=== PATIENT | female | born 1965 | race African-American/Black ===

== ENCOUNTER 2016-05-22 15:20 | Emergency (ER) ==
--- NOTE | 2016-05-22 16:24 | PROVIDER DOCUMENTATION ---
HPI-General Adult - General Source: patient - History of Present Illness -Gen Adult Nature of Presenting Problems: Pt is a 50 yof that presents to er with cc of cough,sinus congestion,sorethroat, bialteral ear pain with intermittent fever x 2-3 days. Denies n,v,abd pain,sob. Location of Pain/Injury: reports: generalized Quality of Pain: reports: aching Severity: reports: mild Onset/Duration: reports: 3 days ago Timing: reports: still present Similar Symptoms Previously?: No Recently seen or treated by another doctor?: No <Mercedes Joaquin - Last Filed: 05/22/16 16:47> <Maria Eugenia Zimmer - Last Filed: 05/22/16 17:19> - General Chief Complaint: Cold Symptoms Stated Complaint: COLD SX Time Seen by Provider: 05/22/16 15:45 Allergies/Adverse Reactions: Patient Allergies Allergy/AdvReac Type Severity Reaction Status Date / Time No Known Allergies Allergy Verified 05/22/16 15:26 Home Medications: Home Medication List Medication Instructions Recorded Confirmed Last Taken Type Valsartan [Diovan] 320 mg PO QAM 12/03/13 05/22/16 05/22/16 History Cefdinir 300 mg PO DAILY #20 capsule 05/22/16 Unknown Rx Review of Systems - Adult - REVIEW OF SYSTEMS - ADULT Constitutional: reports: fever. denies: chills, fatique, night sweats Eyes: denies: dry eyes, blurred vision, double vision Ears, Nose, Mouth & Throat: reports: ear pain, sinus problem, throat pain. denies: tinnitus, nose pain, loose teeth Cardiovascular: denies: chest pain, irregular heart rate, orthopnea, syncope Respiratory: denies: cough, shortness of breath, wheezing Gastrointestinal: reports: no symptoms reported Genitourinary: reports: no symptoms reported Musculoskeletal: reports: no symptoms reported Integumentary: reports: no symptoms reported Neurological: reports: no symptoms reported Psychiatric: reports: no symptoms reported Endocrine: reports: no symptoms reported Hematologic/Lymphatic: reports: no symptoms reported Allergic/Immunologic: reports: no symptoms reported All Other Systems: Reviewed and Negative <Mercedes Joaquin - Last Filed: 05/22/16 16:47> Past History - Adult - PAST MEDICAL HISTORY-ADULT Review of Records: reports: Nursing Assessment Review Major Childhood Illnesses: reports: denies history Cardiovascular: reports: HTN - PRIOR SURGERIES/PROCEDURES Surgical/Procedure History: reports: gastric bypass - IMMUNIZATION STATUS Childhood Immunizations: NUTD Flu Vaccine: NUTD - FAMILY HISTORY Family History: reviewed, not pertinent - SOCIAL HISTORY Smoking: denies Substance Use: none/never <Mercedes Joaquin - Last Filed: 05/22/16 16:47> Physical Exam-General - PHYSICAL EXAM-ADULT Initial Vital Signs Reviewed: Yes - CONSTITUTIONAL General Appearance: appears well, alert, no apparent distress - EYES Eyes: PERRL/EOMI, pink conjunctivae - HEAD, EARS, NOSE, MOUTH & THROAT HENMT: normocephalic/atraumatic, moist mucous membranes, normal ENT inspection, TMs normal, pharynx normal - RESPIRATORY Respiratory: lungs clear, normal breath sounds - GASTROINTESTINAL (ABDOMEN) Abdominal Exam: non tender, soft - MUSCULOSKELETAL Extremity: normal range of motion, normal capillary refill - SKIN Integumentary: normal color, normal turgor, warm/dry - PSYCHIATRIC Psych/Mental Status: normal mood/affect, oriented x 3 <Maria Eugenia Zimmer - Last Filed: 05/22/16 17:19> Progress - PLAN OF CARE/RESULTS Progress/Plan/Lab Results: Orders Category Date Time Status DIRECT STREP PL Stat Lab 05/22/16 16:[address] Stat Lab 05/22/16 16:12 Received Vital Signs - 24 hr 05/22/16 15:27 Temperature 98.5 F Pulse Rate 104 H Respiratory 20 Rate Blood Pressure 188/101 O2 Sat by Pulse 100 Oximetry Laboratory Tests 05/22/16 05/22/16 16:12 16:12 Influenza A (Rapid) NEGATIVE Influenza B (Rapid) NEGATIVE Group A Strep Rapid NEGATIVE <JoaquinMercedes - Last Filed: 05/22/16 16:47> - PLAN OF CARE/RESULTS Progress/Plan/Lab Results: Discussed care, diagnosis and need for follow-up, patient verbalized understanding Laboratory Tests 05/22/16 16:12 Group A Strep Rapid NEGATIVE Orders Category Date Time Status DIRECT STREP PL Stat Lab 05/22/16 16:[address] Stat Lab 05/22/16 16:12 Received Dexamethasone [Decadron] Med 05/22/16 16:39 Discontinued 10 mg IM NOW ONE Last Vital Signs Temp 98.5 F 05/22/16 15:27 Pulse 104 H 05/22/16 15:27 Resp 20 05/22/16 15:27 BP 154/89 05/22/16 16:27 Pulse Ox 100 05/22/16 15:27 Allergies No Known Allergies Allergy (Verified 05/22/16 15:26) Orders 05/22/16 16:[address] Stat Lab Tests 05/22/16 16:12 Group A Strep Rapid NEGATIVE Vital Signs - 24 hr 05/22/16 05/22/16 15:27 16:27 Temperature 98.5 F Pulse Rate 104 H Respiratory 20 Rate Blood Pressure 188/101 154/89 O2 Sat by Pulse 100 Oximetry <Maria Eugenia Zimmer - Last Filed: 05/22/16 17:19> Departure <Mercedes Joaquin - Last Filed: 05/22/16 16:47> - Departure Time of Disposition Order: 16:43 Certified Medical Emergency: Emergent <Maria Eugenia Zimmer - Last Filed: 05/22/16 17:19> - Departure DIAGNOSIS: Influenza-like illness Pharyngitis Qualifiers: Pharyngitis/tonsillitis etiology: unspecified etiology Qualified Code(s): J02.9 - Acute pharyngitis, unspecified Disposition: HOME 01 Condition: Stable Additional Instructions: ED Follow Up Instructions: You have been treated by a care provider in the Emergency Department. These instructions are being provided to you so you can have an understanding of how to care for yourself upon discharge. Upon discharge from the Emergency Department, you are responsible for making arrangements for follow-up care by a physician of your choice. Take all prescribed medications as directed. Return to the Emergency Department immediately for any new or worsening symptoms. You may call the Physician Referral phone number at [phone] to obtain a list of Physicians who are taking new patients. Prescriptions: Cefdinir 300 mg PO DAILY #20 capsule Referrals: Luz Marina Munoz MD [STAFF PHYSICIAN] - None,PCP [Primary Care Provider] - Forms: Return to School/Parent Work Instructions: Cefdinir capsules, Pharyngitis, [id number] Attestation - Scribe Verification/Attestation Scribe:: Mercedes Joaquin Acting as Scribe for:: Maria Eugenia Zimmer Scribe documention review:: This chart was documented by a scribe and accurately reflects the service the provider performed and the decisions made by the provider. - Physician/ MELVI Attestation Patient care was provided by Advanced Practice Provider:: Yes Advanced Practice Provider:: Maria Eugenia Zimmer Advanced Practice Provider documentation review:: The Mid-level provider documentation, treatment plan and medical decision making was reviewed by the physician who agrees with all treatment and medical decision making by the MLP. <Mercedes Joaquin - Last Filed: 05/22/16 16:47> - Physician/ MELVI Attestation Patient care was provided by Advanced Practice Provider:: Yes Advanced Practice Provider:: Maria Eugenia Zimmer Advanced Practice Provider documentation review:: The Mid-level provider documentation, treatment plan and medical decision making was reviewed by the physician who agrees with all treatment and medical decision making by the MLP. <Maria Eugenia Zimmer - Last Filed: 05/22/16 17:19> Physician Attestation
[2016-05-22] MEDS ORDERED: DECADRON IM ONE (16:39)
[2016-05-22 17:01] VITALS: BP 155/92
== END 2016-05-22 17:27 | disposition home or self-care (01) ==
LOC: P.ED 15:20
DX: J11.1 Influenza due to unidentified influenza virus with other respiratory manifestations (principal); J02.9 Acute pharyngitis, unspecified; R05 Cough; R09.81 Nasal congestion; H92.03 Otalgia, bilateral; R50.9 Fever, unspecified; I10 Essential (primary) hypertension; Z79.899 Other long term (current) drug therapy; Z98.84 Bariatric surgery status
CPT/HCPCS: 87081; 87430; 87804; 96372

== ENCOUNTER 2016-10-07 03:20 | Inpatient (IN) ==
--- NOTE | 2016-10-01 08:31 | EKG Report ---
Test Performed on : 10/01/2016 08:09:13 AM Test Reason : MD PATEL Blood Pressure : / mmHG Vent. Rate : 085 BPM Atrial Rate : 085 BPM P-R Int : 142 ms QRS Dur : 080 ms QT Int : 372 ms P-R-T Axes : 034 031 041 degrees QTc Int : 442 ms Normal sinus rhythm. Cannot rule out Anterior infarct (cited on or before 21-JUN-2015) Abnormal ECG When compared with ECG of 21-JUN-2015 18:41, T wave amplitude has increased in inferior III T wave amplitude has increased in V2-V3 Confirmed by Judah Carmona DO ([id number]) on 10/03/2016 1:11:24 PM
[2016-10-01 08:55] LABS: INR 0.98; PROTIME 10.3 Seconds (9.2-11.7); PTT 24.3 Seconds (22.0-36.0)
[2016-10-01 08:59] LABS: CALCIUM 9.2 mg/dL (8.8-10.2)
[2016-10-01 09:02] LABS: BASO% 0.3 % (0.0-0.8); EOS# 0.07 X1000 (0.0-0.7); EOS% 1.8 % (0.0-10.0); HEMATOCRIT 35.9 % (37.0-47.0); HEMOGLOBIN 11.7 g/dL (12.0-16.0); LYMPH# 0.98 X1000 (1.2-3.4); LYMPH% 25.3 % (20.5-51.1); MANUAL DIFF NEEDED? NO; MCH 30.5 PG (27-31); MCHC 32.6 g/dL (33-37); MCV 93.7 FL (81-99); MONO% 15.5 % (1.7-9.3); NEUT% 57.1 % (42.2-75.2); PLT 166 X1000 (130-400); RBC 3.83 XMIL (4.2-5.4)
[2016-10-07] MEDS ORDERED: MORPHINE IV PRN (07:10)
[2016-10-07] MEDS ORDERED: SYNTHROID PO SCH (09:00)
[2016-10-07] MEDS ORDERED: DIPRIVAN 1% ONE (11:32)
[2016-10-07 11:44] LABS: URINE SOURCE CLEAN CATCH
[2016-10-07 11:48] LABS: BILIRUBIN URINE NEGATIVE (NEGATIVE); BLOOD URINE NEGATIVE (NEGATIVE); CLARITY CLEAR (CLEAR); COLOR YELLOW; GLUCOSE URINE NEGATIVE (NEGATIVE); LEUKOCYTES URINE NEGATIVE (NEGATIVE); NITRITE URINE NEGATIVE (NEGATIVE); PROTEIN URINE NEGATIVE (NEGATIVE); SP GRAVITY URINE 1.025; UROBILINOGEN URINE 0.2 EU/dL (0.2-1.0)
[2016-10-07] MEDS ORDERED: TORADOL ONE (11:59)
[2016-10-07] MEDS ORDERED: DURAMORPH ONE (11:59)
[2016-10-07] MEDS ORDERED: VANCOMYCIN ONE (11:59)
[2016-10-07] MEDS ORDERED: NEOSPORIN G.U. IRRIGANT ONE (12:00)
[2016-10-07] MEDS ORDERED: EXPAREL 1.3% ONE (12:00)
[2016-10-07] MEDS ORDERED: LYRICA ONE (12:12)
[2016-10-07] MEDS ORDERED: LR 1,000 ML ONE (12:12)
[2016-10-07] MEDS ORDERED: KEFZOL 2 GM/D5W 2 GM/50 ML IVPB ONE (12:12)
[2016-10-07] MEDS ORDERED: PEPCID ONE (12:12)
[2016-10-07] MEDS ORDERED: REGLAN ONE (12:12)
[2016-10-07] MEDS ORDERED: COLACE ONE (12:12)
[2016-10-07] MEDS ORDERED: CELEBREX ONE (12:12)
[2016-10-07 12:16] LABS: URINE EPITHELIAL CELLS <10 /HPF (<10); URINE RBC <10 /HPF (<10); URINE WBC <10 /HPF (<10)
[2016-10-07] MEDS ORDERED: SENSORCAINE 0.25%/EPI 1:200,000 ONE (12:17)
[2016-10-07] MEDS ORDERED: XYLOCAINE-MPF 2% ONE (12:29)
[2016-10-07] MEDS ORDERED: SODIUM CHLORIDE 0.9% 10 ML ONE (12:29)
[2016-10-07] MEDS ORDERED: NORCURON ONE (12:29)
[2016-10-07] MEDS ORDERED: QUELICIN (DOSE) ONE (12:29)
[2016-10-07] MEDS ORDERED: FENTANYL ONE (12:33)
[2016-10-07] MEDS ORDERED: VERSED ONE (12:52)
[2016-10-07] MEDS ORDERED: SODIUM CHLORIDE 0.9% ONE (12:53)
[2016-10-07] MEDS ORDERED: CYKLOKAPRON 1,000 MG/NS 1,000 MG/100 ML IVPB ONE (13:30)
[2016-10-07 14:00] LABS: URINE MICRO REVIEW NEEDED? NO; URINE SOURCE CATH
[2016-10-07 14:05] LABS: BILIRUBIN URINE NEGATIVE (NEGATIVE); BLOOD URINE NEGATIVE (NEGATIVE); COLOR YELLOW; GLUCOSE URINE NEGATIVE (NEGATIVE); LEUKOCYTES URINE NEGATIVE (NEGATIVE); NITRITE URINE NEGATIVE (NEGATIVE); PROTEIN URINE NEGATIVE (NEGATIVE); SP GRAVITY URINE 1.015; TURBIDITY URINE CLEAR (CLEAR); UR EPITHELIAL CELLS <10 /HPF (<10); URINE BACTERIA NEGATIVE /HPF; URINE RBC <10 /HPF (<10); URINE WBC <10 /HPF (<10); UROBILINOGEN URINE NORMAL (NORMAL)
[2016-10-07] MEDS ORDERED: DECADRON ONE (14:05)
[2016-10-07] MEDS ORDERED: ZOFRAN ONE (14:05)
[2016-10-07] MEDS ORDERED: NEOSTIGMINE ONE (14:41)
[2016-10-07] MEDS ORDERED: ROBINUL ONE (14:41)
[2016-10-07] MEDS ORDERED: MORPHINE ONE (15:16)
--- NOTE | 2016-10-07 15:26 | OPERATIVE NOTE ---
PROCEDURE DATE: 10/07/2016 PREOPERATIVE DIAGNOSIS: Degenerative joint disease, right knee. POSTOPERATIVE DIAGNOSIS: Degenerative joint disease, right knee. PROCEDURE: Right total knee replacement. SURGEON: Lashonda Sage MD. BOOM CRANE OPERATOR: Alfredo Schwartz. ANESTHESIA: General. COMPLICATION: None. PROCEDURE IN DETAIL: This 50-year-old female presents for right knee replacement. Risks, benefits, and no guarantees were discussed, and she is willing to proceed. She was taken to the operating room and satisfactory anesthesia obtained. The right knee was prepped and draped in usual sterile fashion. A time-out was taken to confirm operative site, procedure, and patient. The leg was then wrapped with an Esmarch and tourniquet inflated to 400 mmHg. A midline incision was made, followed by a quad tendon sparing arthrotomy. The patella was everted and resurfaced with freehand technique. It was subluxed laterally and the knee flexed. An intramedullary hole was made in the distal femur and the distal femoral cutting block secured in 5 degrees of valgus. Distal femoral resection was made at +10 to accommodate for a flexion contracture. The femur was sized to a [employer] size 4 femoral implant. The 4-in-1 block was secured and the anterior, posterior, and chamfer cuts sequentially made with care taken to preserve the collateral ligaments. A notch was created using the provided notch guide for posterior stabilized design. Afterwards, the knee was flexed and a PCL retractor placed behind the tibia to protect the neurovascular bundle. The tibial cutting block was secured and the tibial resection made. Flexion and extension gaps were noted to be slightly tight. An additional 2 mm taken off the tibia with good soft tissue balance. The tibia was sized to a size 4 tibial tray. Trial reduction was performed with trial femoral and tibial components with a 5 mm thick poly with good range of motion and stability. The patella was sized to a size 35 medialized dome patella with good patellar tracking. The trial components were removed, and the bony surfaces thoroughly irrigated with pulsatile lavage. Cement with a gram of vancomycin was then utilized to cement a DePuy size 4 rotating platform tibial base plate, a size 4 posterior stabilized right femoral component, and a 35 medialized dome patella. While the cement cured, the joint capsule was injected with Exparel for pain management. A Hemovac drain was placed. The arthrotomy was then copiously irrigated with irrigant. After curing the cement, any excess cement was removed with a [place] elevator. The trial poly was removed and a size 4 posterior stabilized 5 mm thick poly placed in the tibial bearing and the knee reduced. Final range of motion was 0-120 degrees with good patellar tracking and soft tissue balance. The knee was then closed over a drain with #1 Vicryl in the arthrotomy, 2-0 Vicryl in the subcutaneous, and skin teri on the skin edges. Sterile dressings completed the closure, and the patient was recovered from anesthesia and transferred to the recovery room in stable condition. No intraoperative complications were noted. Instrument count and sponge count were correct at the time of closure. cc: Deepak Sage MD
[2016-10-07] MEDS ORDERED: NAROPIN 0.5% ONE ×2 (15:29→16:07)
[2016-10-07] MEDS ORDERED: NS 1,000 ML ONE (15:41)
--- NOTE | 2016-10-07 15:49 | Diag Imaging Result Doc PS360 ---
EXAM: KNEE 1-2 VIEWS-RIGHT INDICATION: tka TECHNIQUE: 2 views COMPARISON: None. FINDINGS: There has been a recent right knee arthroplasty. The arthroplasty hardware is in the expected position. There is no evidence of periprosthetic fracture. Anterior skin teri and a drainage catheter are in place. IMPRESSION: Satisfactory postoperative right knee. Electronically signed by Deepak Madison 10/07/2016 3:47 PM
[2016-10-07] MEDS: DILAUDID ONE ×2 (16:04→16:09)
--- NOTE | 2016-10-07 17:42 | PROGRESS NOTE ---
DATE: 10/07/2016 Ms. Oneil is seen today status post knee replacement. Presently she is afebrile with stable vital signs. Her pain is controlled at the present time. Bandage is clean and dry. She is motor and sensory intact with good range of motion of the ankle and toes. She appears to be in stable condition currently. cc: Deepak Sage MD
[2016-10-07] MEDS: NORCO-10 PO PRN ×2 (18:44→20:33)
[2016-10-07] MEDS: NS 1,000 ML IV SCH (18:46)
[2016-10-07] MEDS: PERIDEX MT SCH (20:34)
[2016-10-07] MEDS: COLACE PO SCH (20:34)
[2016-10-07] MEDS: KEFZOL 1 GM/D5W 1 GM/50 ML IVPB IV SCH (20:34)
[2016-10-08] MEDS: NORCO-10 PO PRN ×5 (00:05→11:16)
[2016-10-08] MEDS ORDERED: MORPHINE IV PRN (00:24)
[2016-10-08] MEDS: KEFZOL 1 GM/D5W 1 GM/50 ML IVPB IV SCH (04:17)
[2016-10-08] MEDS: NS 1,000 ML IV SCH (05:40)
[2016-10-08 05:57] LABS: HEMATOCRIT 31.8 % (37.0-47.0); HEMOGLOBIN 10.3 g/dL (12.0-16.0)
[2016-10-08] MEDS ORDERED: XARELTO PO SCH (06:00)
[2016-10-08 06:56] LABS: POTASSIUM 5.9 mmol/L (3.5-5.1)
[2016-10-08 07:48] VITALS: BP 127/64
[2016-10-08] MEDS: COLACE PO SCH (08:45)
[2016-10-08] MEDS: PERIDEX MT SCH (08:46)
[2016-10-08] MEDS ORDERED: HYDROCHLOROTHIAZIDE PO SCH (09:00)
[2016-10-08] MEDS ORDERED: VITAMIN B-12 PO SCH (09:00)
[2016-10-08] MEDS ORDERED: CELEBREX PO SCH (09:00)
[2016-10-08] MEDS ORDERED: DIOVAN PO SCH (09:00)
[2016-10-08] MEDS ORDERED: FERROUS SULFATE PO SCH (09:00)
--- NOTE | 2016-10-08 15:30 | DISCHARGE SUMMARY ---
ADMISSION DATE: 10/07/2016 DISCHARGE DATE: 10/08/2016 ADMITTING DIAGNOSIS: Degenerative joint disease of the knee. ADDITIONAL DIAGNOSIS: History of obesity, anemia and hypertension. DISCHARGE DIAGNOSIS: Degenerative joint disease of the knee. ADMITTING HISTORY AND HOSPITAL COURSE: A 50-year-old female with end-stage DJD about the right knee presents for knee replacement. She was admitted to the hospital and underwent a right knee replacement without complication. Postoperatively she steadily progressed. She was monitored overnight and has remained afebrile with stable vital signs. The incision is clean and dry with no signs of infection, bleeding or DVT. She is discharged home today for outpatient followup and home therapy. She can return in the interim for any worsening signs or symptoms. We will plan on seeing her back in 12 days time for staple removal. DISCHARGE HOME MEDICATIONS: 1. Diovan 320/25 daily. 2. Iron supplementation. 3. Synthroid 75 mcg daily. 4. Mobic 15 mg daily. 5. Deadwood 10, 1-2 every 4-6 hours p.r.n. pain. 6. Xarelto 10 mg daily for DVT prophylaxis. cc: Deepak Sage MD
== END 2016-10-08 12:39 | disposition home health service (06) ==
LOC: SURHOLD 03:20 → 4N 13:30
PROVIDERS: ADMIT Orthopaedic Surgery Adult Reconstructive Orthopaedic Surgery; ATTEND Orthopaedic Surgery Adult Reconstructive Orthopaedic Surgery